=== PATIENT | male | born 1990 | race Caucasian/White ===

== ENCOUNTER → 2025-01-17 | Outpatient (CLI) | payer OTHER ==
[2025-01-17 18:44] LABS: PLATELET COUNT, AUTOMATED 301 10^3/uL (150-450)
[2025-01-17 19:19] LABS: ALT/SGPT 34 U/L (7.0-40); AST/SGOT 18 U/L (<34); CALCIUM LEVEL 9.6 MG/DL (8.5-10.1); CARBON DIOXIDE LEVEL 30 MMOL/L (20-31); CHLORIDE LEVEL 101 MMOL/L (98-107); CREATININE FOR GFR 0.85 MG/DL (0.70-1.30); FREE T4 1.29 NG/DL (0.89-1.76); GLOMERULAR FILTRATION RATE > 90.0 (>60); POTASSIUM SERUM 4.2 MMOL/L (3.5-5.1); SODIUM LEVEL 139 MMOL/L (136-145)
[2025-01-17 19:20] LABS: LUTEINIZING HORMONE 2.5 mIU/ML (1.5-9.3); PROLACTIN 6.08 NG/ML (2.1-17.7)
[2025-01-17 19:21] LABS: ESTRADIOL 27.7 PG/ML (<39.8); PROGESTERONE 0.45 NG/ML (0.28-1.22)
[2025-01-19 08:38] LABS: HCG SERUM TUMOR MARKER QUANT < 5 mIU/mL (<5)
[2025-01-23 21:07] LABS: TESTOSTERONE FREE (DIRECT) 81.1 pg/mL (35.0-155.0); TESTOSTERONE TOTAL FOR T&D 480 ng/dL (250-1100)
== END ==
LOC: M WUC 15:54
PROVIDERS: ATTEND Plastic Surgery Surgery of the Hand
DX: N62 Hypertrophy of breast (principal)